=== PATIENT | female | born 1960 ===

== ENCOUNTER 2017-01-29 10:18 | Emergency (ER) | payer OTHER ==
[2017-01-29 10:27] VITALS: RESP 18; TEMP 98.2
--- NOTE | 2017-01-29 10:55 | C.PDOC ---
History Of Present Illness 57 year old female presents to the ED with complaints of left knee pain beginning earlier today. Patient states she was stepping onto the bus when she immediately began to feel pain in her knee. She denies falls/injuries, fever, calf pain, rash, sensory changes. Time Seen by Provider: 01/29/17 10:47 Chief Complaint (Nursing): Lower Extremity Problem/Injury History Per: Patient History/Exam Limitations: no limitations Onset/Duration Of Symptoms: Hrs Current Symptoms Are (Timing): Still Present Severity: Mild Past Medical History Reviewed: Historical Data, Nursing Documentation, Vital Signs Vital Signs: Last Vital Signs Temp 98.2 F 01/29/17 10:25 Pulse 58 L 01/29/17 11:58 Resp 18 01/29/17 11:58 BP 125/77 01/29/17 11:58 Pulse Ox 100 01/29/17 13:09 - Medical History PMH: No Chronic Diseases Family History: States: No Known Family Hx - Social History Hx Alcohol Use: No Hx Substance Use: No - Immunization History Hx Tetanus Toxoid Vaccination: No Hx Influenza Vaccination: No Hx Pneumococcal Vaccination: No Review Of Systems Except As Marked, All Systems Reviewed And Found Negative. Constitutional: Negative for: Fever Cardiovascular: Negative for: Chest Pain, Palpitations Respiratory: Negative for: Shortness of Breath Gastrointestinal: Negative for: Nausea, Vomiting, Abdominal Pain, Diarrhea Musculoskeletal: Positive for: Leg Pain (left knee pain ) Skin: Negative for: Rash Neurological: Negative for: Weakness, Numbness Physical Exam - Physical Exam Appears: Well, Non-toxic, Other ( in mild pain ) Skin: Warm, Dry, No Rash Head: Normacephalic Eye(s): bilateral: Normal Inspection Oral Mucosa: Moist Cardiovascular: Rhythm Regular Respiratory: Normal Breath Sounds, No Rales, No Rhonchi, No Wheezing Extremity: Tenderness (anterior left knee mild diffuse tenderness to palpation ) , No Calf Tenderness, Capillary Refill (< 2 sec all digits ), No Deformity, No Swelling, Other (Increased pain with extension of left knee. No popliteal mass) Pulses: Left Dorsalis Pedis: Normal, Right Dorsalis Pedis: Normal Neurological/Psych: Oriented x3, Normal Motor, Normal Sensation Gait: Steady ED Course And Treatment O2 Sat by Pulse Oximetry: 100 (RA) Pulse Ox Interpretation: Normal - Other Rad Left Knee X-Ray X-Ray: Interpreted by Me, Viewed By Me Interpretation: no fracture or dislocation Progress Note: Patient given PO tylenol. Xray of left knee ordered and reviewed. Xray (-) for fracture. Patient placed in knee brace and given crutches + instruction. She was instructed to follow up with orthopedics within 1 week, and given Rx for Naprosyn. Reevaluation Time: 12:45 Reassessment Condition: Improved (Patient reassessed, pain has improved and she states she feels better.) Disposition Counseled Patient/Family Regarding: Studies Performed, Diagnosis, Need For Followup, Rx Given - Disposition Referrals: Nancy Turner MD [Staff Provider] - [facility] [Outside] Disposition: HOME/ ROUTINE Disposition Time: 12:45 Condition: STABLE Additional Instructions: SEGUIMIENTO CON ORTOPEDIOS DENTRO DE 1 SEMANA USE MEDICACIN SEGN SEA NECESARIO ELEVAR LA PIERNA TANTO BARBARA SEA POSIBLE REGRESAR A LA JUAN DE EMERGENCIA SI LOS SNTOMAS EMPEORARAN Prescriptions: Naproxen 375 mg PO BID PRN #20 tablet PRN Reason: pain Instructions: Knee Sprain (ED) Forms: [employer] (Haitian) Print Language: CHADIAN - Clinical Impression Clinical Impression: Left knee sprain - Scribe Statement The provider has reviewed the documentation as recorded by the Scribe Beena Arechiga All medical record entries made by the Scribe were at my direction and personally dictated by me. I have reviewed the chart and agree that the record accurately reflects my personal performance of the history, physical exam, medical decision making, and the department course for this patient. I have also personally directed, reviewed, and agree with the discharge instructions and disposition.
--- NOTE | 2017-01-29 11:25 | RAD ---
PROCEDURE: Left Knee Radiographs. HISTORY: Pain. COMPARISON: None. FINDINGS: BONES: No displaced fractures identified but there is no destructive bony lesion appreciated. JOINTS: Mild joint space narrowing seen the patellofemoral and medial femorotibial joint compartments compatible degenerative joint disease. No subluxation or dislocation identified. JOINT EFFUSION: Small suprapatellar bursa effusion identified. OTHER FINDINGS: Soft tissue calcifications seen in the prepatellar space as well as of the up upper pretibial space of uncertain origin. An additional punctate calcification is seen at the patellar tendon but only in the lateral view. It may be a superimposed finding. IMPRESSION: No acute fracture or dislocation. [id number] degenerative joint disease findings are noted as well as a mild suprapatellar bursa effusion.
[2017-01-29 11:59] VITALS: BP 125/77; PULSE 58
[2017-01-29 13:02] VITALS: O2SAT 100
== END 2017-01-29 12:48 | disposition home or self-care (01) ==
LOC: C.ER 10:18
DX: S83.92XA Sprain of unspecified site of left knee, initial encounter (principal); X58.XXXA Exposure to other specified factors, initial encounter
CPT/HCPCS: 73562; 97116; 97161; 99285; G8978; G8979; G8980